=== PATIENT | female | born 1975 | race Caucasian/White ===

== ENCOUNTER 2021-09-04 22:12 | Emergency (ER) | payer OTHER ==
[~2021-09-04] VITALS: Ht 175.3 cm; Wt 79.4 kg
[2021-09-04] MEDS ORDERED: TRIAMCINOLONE ACETONIDE 40 MG/ML 1ML VIAL SQ ONE (22:30)
[2021-09-04] MEDS ORDERED: KETOROLAC 60 MG VIAL (30MG/ML) IM ONE (22:30)
[2021-09-04] MEDS ORDERED: BUPIVACAINE/PF 0.5% 10ML VIAL IJ ONE (22:30)
[2021-09-04 22:41] VITALS: BP 128/65
[2021-09-04 22:43] LABS: APPEARANCE,URINE CLEAR (CLEAR); BILIRUBIN,URINE NEGATIVE (NEGATIVE); COLOR,URINE YELLOW (YELLOW); GLUCOSE, URINE (UA) NEGATIVE (NEGATIVE); KETONES,URINE NEGATIVE (NEGATIVE); LEUKOCYTE ESTERASE ,URINE NEGATIVE (NEGATIVE); NITRATE,URINE NEGATIVE (NEGATIVE); PROTEIN,URINE NEGATIVE (NEGATIVE); UROBILINOGEN,URINE 0.2 mg/dL (0.2-1.0)
[2021-09-04 22:47] LABS: OCCULT BLOOD,URINE NEGATIVE (NEGATIVE)
[2021-09-04] MEDS ORDERED: BUPIVACAINE/PF 0.25% 30ML VIAL IJ ONE (22:51)
[2021-09-04] MEDS ORDERED: TRIAMCINOLONE ACETONIDE 40 MG/ML 1ML VIAL ONE (22:53)
[2021-09-04] MEDS ORDERED: CYCL10TA16 PO (23:17)
[2021-09-04] MEDS ORDERED: NAPR-1180 PO (23:17)
== END 2021-09-04 23:27 | disposition home or self-care (01) ==
LOC: EDH 22:12
DX: M54.50 Low back pain, unspecified (principal); Z88.5 Allergy status to narcotic agent; Z88.8 Allergy status to other drugs, medicaments and biological substances; Z79.1 Long term (current) use of non-steroidal anti-inflammatories (NSAID)
CPT/HCPCS: 99284; 20552; 81003; 96372; J3490 ×2; J3301; J1885